=== PATIENT | male | born 1960 | race Caucasian/White ===

== ENCOUNTER 2016-08-18 01:30 | Day surgery (SDC) | payer OTHER ==
[~2016-08-18] VITALS: Ht 180.3 cm; Wt 100.0 kg
[~2016-08-18 01:30] MED LIST: CYCL10TA9 PO; FURO40TA4 PO; OXYC15TA45 PO; PARO30TA4 PO; POTA20TA16 PO
[2016-08-18] MEDS ORDERED: Ketamine 10 mg/mL 20 mL Inj ONE (01:31)
[2016-08-18] MEDS ORDERED: fentaNYL-PF 50 mCg/mL 2 mL Inj ONE (01:31)
[2016-08-18] MEDS ORDERED: Propofol 10,000 mCg/mL 20 mL Inj ONE (01:31)
[2016-08-18 08:54] VITALS: BP 134/80; PULSE 76; RESP 14; O2SAT 98
[2016-08-18] MEDS ORDERED: TRAZ-115 PO (08:54)
[2016-08-18] MEDS ORDERED: LISI-567 PO (08:54)
[2016-08-18] MEDS ORDERED: Lactated Ringer's 1,000 ML IV SCH (09:08)
[2016-08-18] MEDS ORDERED: Lactated Ringer's 500 ML IV PRN (09:08)
--- NOTE | 2016-08-18 09:08 | PCM.HPANE ---
Patient Data Date of Service: August 18, 2016 Surgeon Admitting Provider: Attending Provider:Deven Valdez MD Primary Care Physician:Basilio Shane DO Other Provider:Leonard Spangler Anesthesia Reason for Visit Screening, Hepatitis C Ht/WT & BMI Height (Feet): 5 Height (Inches): 11 Weight (Kilograms): 100 Body Mass Index 30.00 Allergies Coded Allergies: No Known Drug Allergies (Verified Allergy, Unknown, 08/17/16) Past Anesthesia History Anesthesia History: Denies:: Anesthesia Reactions, Fam Anesthesia Reaction, Fam Malignant Hypertherm, Malignant Hyperthermia Diabetes History Hx Diabetes?: No MRSA MRSA: No Medications Reported Medications Lisinopril 20 Mg [id number] Mg PO DAILY 30 Days Ref 0 08/18/16 Trazodone 50 Mg [id number] Mg PO HS Ref 0 08/18/16 Potassium Chloride 20 Meq Tab.er.prt20 Meq PO BID 30 Days Ref 0 TAKE WITH FOOD 08/03/16 Paroxetine 30 Mg Rldwla36 Mg PO DAILY 30 Days Ref 0 08/03/16 Oxycodone (Roxicodone)15 Mg Doplce10 Mg PO Q6H PRN For Pain Ref 0 08/03/16 Furosemide 40 Mg Vjvbat90 Mg PO DAILY 08/03/16 Discontinued Reported Medications Cyclobenzaprine 10 Mg Yqymvo28 Mg PO BID PRN Spasm Ref 0 08/03/16 Trazodone 50 Mg Nhtyru45 Mg PO HS Ref 0 08/03/16 Lisinopril 20 Mg Ytfogm83 Mg PO DAILY 30 Days Ref 0 08/03/16 History History of ENT Problems?: No HEENT History: Denies:: Abnormal Airway Denture Type: None Teeth Condition: Missing Teeth Hx of Heart Problems?: No Cardiovascular History: Positive for:: Hypertension Hx of Respiratory Problem?: No Respiratory History: Positive for:: Asthma (CHILDHOOD) Hx Neurologic Problems?: Yes Neurological History: Positive for:: Headaches Denies:: CVA Hx of GI Problems?: Yes Other History/Comment HCV Hx of Problems?: No Male Hx: Denies:: Scrotal Mass Hx Musculoskeletal Problems?: Yes Musculoskeletal History: Positive for:: Back Injury Musculoskeletal Trauma (Left heel surgery x 2) Hx of Psycho/Social Problems?: Yes Psycho Social History: Positive for:: Anxiety Hx Depression Hx Surgeries?: Yes (NASAL, T&A, CALCANEUS) Hx Any Other Health Problems?: Yes History Blood Transfusions: Positive for:: Blood Transfusions Hx Diabetes: No Hx Alcohol Use: No (NONE X >15 YEARS) Stop/Bang Treated for Sleep Apnea?: No S-Snoring: Do You Snore Loudly: Yes T-Tired: feel tired, fatigued: Yes O-Obsered: Observed not breath: No P-Blood Pressure: treated: Yes B- Body Mass Index > 35 kg/m2: No A- Age over 50: Yes N- Neck Large Circumference: No G- Gender Male: Yes ZANE Total Score: 5 ZANE Category 4 OutPt Procedure: Yes Risk Assessment Category Category 1A: Patient has history of documented sleep apnea, and HAS NOT received any narcotic, sedative or anesthesia administration during this stay. Category 1B: Patient has history of documented sleep apnea, and HAS received any narcotic , sedative or anesthesia administration during this stay Category 2: Patient has SUSPECTED Obstructive Sleep Apnea, and HAS received any narcotic , sedative or anesthesia administration during this stay. Category 3: Patient has SUSPECTED Obstructive Sleep Apnea and HAS NOT received narcotic, sedative or anesthesia administration during this stay. Category 4: Outpatient in Procedural Areas with known sleep apnea or who screen positive for High Risk via the STOP/BANG questionnaire. Exam Exam Vital Signs Vital Signs Date Time Temp Pulse Resp B/P Pulse Ox O2 Delivery O2 Flow Rate FiO2 08/18/16 08:54 37.2 76 14 134/80 98 Room Air General Appearance: Alert, Oriented X3, Cooperative, No Acute Distress HEENT/AIRWAY: MP 3 Lungs: Clear to Auscultation, Normal Air Movement Heart: Exam Unremarkable, Regular Rate/Rhythm, No Murmurs/Rubs/Gallops Plan Impression Patient chart reviewed, patient interviewed and anesthestic plan with risks, benefits, and alternatives discussed, and informed consent obtained. NPO per Anesth. Guidelines: Yes ASA Physical Status: ASA2 Mod Systemic Disease Anesthetic Plan: MAC Bene/Risks/Altern/Consents: Yes HP Complete Prior to Induction: Yes Fercho Garcia MD August 18, 2016 09:08
[2016-08-18] MEDS ORDERED: Atropine 0.4 mg/mL Inj IVPUSH PRN (09:10)
[2016-08-18] MEDS ORDERED: Ondansetron 2 mg/mL 2 mL Inj IVPUSH PRN (09:10)
[2016-08-18] MEDS ORDERED: MetoCLOpramide 5 mg/mL 2 mL Inj IVPUSH PRN (09:10)
[2016-08-18] MEDS: Lactated Ringer's 1,000 ML IV ONE ×3 (09:22→09:43)
--- NOTE | 2016-08-18 09:32 | PCM.ENDEGD ---
EGD Date of Service: August 18, 2016 Physician Deven Valdez MD Pre Procedure Diagnosis: Varices surveillance cirrhosis Post Procedure Dx & Findings: Hypertensive gastropathy possible grade 1 varices possible Taylor's whitish material on the villous structure of the duodenum. Procedure Esophagogastroduodenoscopy PROCEDURE IN DETAIL: After proper sedation, Olympus video endoscope was inserted into patient's mouth and esophagus was successfully intubated. Scope introduced esophagus. Esophagus showed normal shiny whitish mucosa consistent with squamous cell component. Z line was not intact at 42 cm from the incisors. There was a small 2 cm mucosa extending above the Z line. It appeared reddish. It could have been a healing ulcer. However it appears that this could be sitting on top of all grade 1 varices. Therefore biopsy was not taken. Scope further advanced to the stomach. Stomach skin color mucosa pattern noted consistent with portal hypertension and the fundus and cardia and body of the stomach. Antrum showed normal shiny mucosa with normal appearing rugae folds without any ulcer mass erosion. Cardia fundus body antrum pylorus were all visualized. Retroflexion was done. Stomach was easily inflated and deflatable using air. Scope further events to the distal duodenum. Duodenum revealed normal villous structures with normal appearing folds without any mass ulcer erosion. However there were patchy areas after the second pass of the duodenum which showed whitish area at the tips of the villi. Biopsies taken. Impression Possible Taylor's on top of a possible grade 1 varices Portal hypertensive gastropathy Rule out lymphangectsia Recommendation Follow up in GI clinic May need endoscopic ultrasound to see if there is blood vessel underneath prior to biopsies. Presedation Assessment Risks and Benefits Informed consent was obtained from the patient after all risks and benefits including but not limited to drug reaction, infection, pain, bleeding, perforation, as well as alternatives were discussed. Patient monitoring Continuous pulse oximetry, cardiac monitoring, blood pressure monitoring, IV access, and oxygen at 2L per nasal cannula. Complications There were no periprocedural complications identified. Post Procedure Plan Post Procedure Recommendations 1. Restrict activities today. 2. Resume normal activities in the morning. 3. Resume medications. 4. GERD behavioral modification: - Avoid fatty, acidic, spicy, large meals - Do not lie down after meals - Do not eat or drink anything for at least 2 1/2 hours before going to bed at night - Discontinue tobacco and alcohol - Decrease or avoid caffeine - Avoid chocolate and mints - Decrease weight - Avoid aspirin and non steroidal anti-inflammatory agents (NSAID) such as Aleve, Advil, Mobic, Naproxen, Ibuprofen, etc 5. Add proton pump inhibitor. Take 30 minutes before 1st meal of the day. 6. Patient informed of normal post procedure side effects as bloating, drowsiness, blood streaking in the stool 7. If gastric biopsy reveal H.pylori, continue with appropriate treatment 8. If small bowel biopsy reveals celiac, continue with appropriate treatment 9. Please don't hesitate to call me with any questions Deven Valdez MD August 18, 2016 09:32
--- NOTE | 2016-08-18 09:52 | PCM.ENDCOL ---
Colonoscopy Date of Service: August 18, 2016 Physician Deven Valdez MD Pre Procedure Diagnosis: Screening Post Procedure Dx & Findings: Polyp hemorrhoids diverticuli Procedure Colonoscopy PROCEDURE IN DETAIL: Prep adequate Withdrawal time 13 minutes After unremarkable rectal examination the Olympus video colonoscope was inserted patient's anal canal and was advanced to cecum. Landmarks were identified including the ileocecal valve and appendiceal orifice. Scope was withdrawn systematically. Visualized colonic mucosa showed healthy shiny mucosa with normal healthy-appearing vasculature. In the ascending colon, there was a 1 mm polyp which was removed completely using cold forceps. In the rectum there was another 1 mm polyp which was removed completely using cold forceps. In the sigmoid colon and also isolated to the ascending colon, several diverticuli noted. Mostly these were in the sigmoid colon. In the rectum retroflexion was done which showed hemorrhoids. Anal canal was inspected carefully on the way out and hemorrhoids noted. Impression Polyps 2 status post complete removal Diverticuli Hemorrhoids Recommendation Repeat colonoscopy 5 years Diverticular diet Presedation Assessment Risks and Benefits Informed consent was obtained from the patient after all risks and benefits including but not limited to drug reaction, infection, pain, bleeding, perforation, as well as alternatives were discussed. Patient monitoring Continuous pulse oximetry, cardiac monitoring, blood pressure monitoring, IV access, and oxygen at 2L per nasal cannula. Complications There were no periprocedural complications identified. Post Procedure Plan Post Procedure Recommendations 1. Restrict activities today. 2. Resume normal activities in the morning. 3. Resume medications. 4. Patient informed of normal post procedure side effects as bloating, drowsiness, blood streaking in the stool. 5. average risk CRCS. If colon polyps come back as: -Hyperplastic- can repeat colonoscopy in 10 years -Tubular adenoma- repeat colonoscopy in 5 years -Tubulovillous/villous adenoma- repeat colonoscopy in 3 years -If any dysplasia- return to clinic as soon as possible 6. Please don't hesitate to call me with any questions. Deven Valdez MD August 18, 2016 09:52
[2016-08-18 09:54] VITALS: BP 96/65; PULSE 78; RESP 16; O2SAT 95
--- NOTE | 2016-08-18 09:54 | PCM.ANEP1 ---
Post Anesthesia Phase 1 PACU Phase 1 Assessment Date of Service: August 18, 2016 Vital Signs 96/65 78 18 96% RA Anesthetic Administered: MAC Level of Alertness: Sleepy, easy to arouse DAO's with Equal Strength: Yes Pain: No Nausea or Vomiting: No Cardiovascular Function and Hy: Yes Oxygen Delivery: Room Air Lungs: Clear to Auscultation, Normal Air Movement Complications: No Follow up Care: No Patient Instructions Provided: Yes Fercho Garcia MD August 18, 2016 09:54
[2016-08-18 10:08] VITALS: BP 116/65; PULSE 74; RESP 16; O2SAT 99
--- NOTE | 2016-08-22 14:27 | PATH ---
SURGICAL PATHOLOGY Attending Physician:Deven Valdez M.D. CASE STATUS: Signed Out PATIENT NAME: JOSS AYALA PID: [id number] : 1960 DATE COLLECTED:08/18/2016 16:48 SPECIMEN: 1: Duodenum, Biopsy 2: Colon, Biopsy 3: Rectum, Biopsy CLINICAL HISTORY: 1. DUODENAL BX 2. ASCENDING COLON POLYP 3. Rectal polyp (per container) FINAL DIAGNOSIS: 1.DUODENAL BIOPSY: FRAGMENTS OF NORMAL-APPEARING SMALL BOWEL MUCOSA. Normal delicate mucosal villi present. Negative for significant inflammation, dysplasia and malignancy. 2.ASCENDING COLON POLYP: POLYPOID-SHAPED FRAGMENT OF COLON MUCOSA CONSISTENT WITH MUCOSAL POLYPOID REDUNDANCY. Negative for dysplasia and malignancy. 3.RECTAL POLYP: HYPERPLASTIC POLYP. ICD10 CODE K62.1 GROSS DESCRIPTION: The specimen is received in three formalin filled containers labeled with the patient's name. 1). The specimen is sublabeled "duodenal" and consists of a 0.3 x 0.3 x 0.2 CM portion of tissue which is entirely submitted in cassette 1A. 2). The specimen is sublabeled "ascending colon polyp" and consists of a 0.2 x 0.2 x 0.2 CM portion of tissue which is entirely submitted in cassette 2A. 3). The specimen is labeled "rectal polyp" and consists of a 0.3 x 0.3 x 0.3 CM portion of tissue which is entirely submitted in cassette 3A. 08/18/2016 DAC MICRO DESCRIPTION: See diagnosis. ICD-9 CODES: CPT CODES: 1: 04506 2: 26053 3: 04970 Electronically Signed Out Sunny Larry MD [facility] [address], [place] [address] Technical component performed at [facility], [address] [place] [address] Ave[address], [place], [address]
== END 2016-08-18 23:59 | disposition home or self-care (01) ==
LOC: SAS 01:30
PROVIDERS: ATTEND Internal Medicine
DX: Z12.11 Encounter for screening for malignant neoplasm of colon (principal); K63.5 Polyp of colon; K62.1 Rectal polyp; K64.9 Unspecified hemorrhoids; K57.30 Diverticulosis of large intestine without perforation or abscess without bleeding; K76.6 Portal hypertension; K31.89 Other diseases of stomach and duodenum; B18.2 Chronic viral hepatitis C; I10 Essential (primary) hypertension; F41.8 Other specified anxiety disorders; M54.2 Cervicalgia; G89.29 Other chronic pain; M54.89 Other dorsalgia; Z79.891 Long term (current) use of opiate analgesic
CPT/HCPCS: 43239; 45380; J3010; J7120